=== PATIENT | female | born 1940 | race Caucasian/White ===

== ENCOUNTER 2016-09-11 07:40 | Outpatient (CLI) | payer MEDICARE, OTHER ==
[2016-06-26 13:01] VITALS: BP 131/65
[2016-09-11 18:01] LABS: URINE CREAT MG/DAY 624 mg/day (740-1570)
== END 2016-09-11 07:42 ==
LOC: LAB 07:40
PROVIDERS: ATTEND Family Medicine
DX: N18.3 Chronic kidney disease, stage 3 (moderate) (principal)
CPT/HCPCS: 82340; 82570; 84156

== ENCOUNTER 2016-09-26 08:46 | Outpatient (CLI) | payer MEDICARE, OTHER ==
[2016-06-26 13:01] VITALS: BP 131/65
[2016-09-26 09:36] LABS: eGFR (African) > 60; eGFR (Non-African) > 60
== END 2016-09-26 08:50 ==
LOC: LAB 08:46
PROVIDERS: ATTEND Family Medicine
DX: I10 Essential (primary) hypertension (principal)
CPT/HCPCS: 36415; 80053

== ENCOUNTER 2016-10-30 15:26 | Outpatient (CLI) | payer MEDICARE, OTHER ==
[2016-06-26 13:01] VITALS: BP 131/65
[2016-10-30 15:54] LABS: BASOPHILS % 0.4 (0.0-1.5); EOSINOPHILS % 1.7 % (0.0-6.8); MEAN CORPUSCULAR HEMOGLOBIN 30.3 pg (28.0-34.0); MEAN CORPUSCULAR VOLUME 90.5 fl (80.0-100.0); NEUTROPHILS # 4.1 # k/uL (1.4-7.7)
[2016-10-30 16:27] LABS: eGFR (African) > 60; eGFR (Non-African) > 60
[2016-10-30 23:20] LABS: VITAMIN D, 25-HYDROXY 55 ng/mL (30-100)
== END 2016-10-30 15:27 ==
LOC: LAB 15:26
PROVIDERS: ATTEND Psychiatry & Neurology Neurology
DX: G40.109 Localization-related (focal) (partial) symptomatic epilepsy and epileptic syndromes with simple partial seizures, not intractable, without status epilepticus (principal)
CPT/HCPCS: 36415; 80053; 80177; 82306; 82607; 83921; 85025

== ENCOUNTER 2016-11-28 08:01 | Outpatient (CLI) | payer MEDICARE, OTHER ==
[2016-06-26 13:01] VITALS: BP 131/65
[2016-11-28 08:31] LABS: BASOPHILS % 0.6 (0.0-1.5); EOSINOPHILS % 2.6 % (0.0-6.8); MEAN CORPUSCULAR HEMOGLOBIN 29.7 pg (28.0-34.0); MEAN CORPUSCULAR VOLUME 90.5 fl (80.0-100.0); MONOCYTES % 2.6 % (0.0-11.0)
[2016-11-28 08:58] LABS: eGFR (African) > 60; eGFR (Non-African) > 60
== END 2016-11-28 08:02 ==
LOC: LAB 08:01
PROVIDERS: ATTEND Psychiatry & Neurology Neurology
DX: Z51.81 Encounter for therapeutic drug level monitoring (principal); Z79.899 Other long term (current) drug therapy; G40.009 Localization-related (focal) (partial) idiopathic epilepsy and epileptic syndromes with seizures of localized onset, not intractable, without status epilepticus
CPT/HCPCS: 36415; 80053; 80177; 85025

== ENCOUNTER 2017-01-26 09:34 | Emergency (ER) | payer MEDICARE, OTHER ==
[2017-01-26] MEDS ORDERED: KETOROLAC TROMETHAMINE 60 MG/2 ML VIAL ONE (10:18)
[2017-01-26] MEDS ORDERED: KETOROLAC TROMETHAMINE 60 MG/2 ML VIAL IM ONE (10:18)
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
[2017-01-26 10:43] VITALS: BP 198/82
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
== END 2017-01-26 10:42 | disposition home or self-care (01) ==
LOC: ED 09:34
DX: S40.011A Contusion of right shoulder, initial encounter (principal); V49.9XXA Car occupant (driver) (passenger) injured in unspecified traffic accident, initial encounter; Y93.9 Activity, unspecified; Y99.9 Unspecified external cause status; I10 Essential (primary) hypertension
CPT/HCPCS: 73030; J1885; 96372; 99283

== ENCOUNTER 2017-05-28 09:41 | Outpatient (CLI) | payer MEDICARE, OTHER ==
[2017-05-28 10:30] LABS: eGFR (African) > 60; eGFR (Non-African) > 60
== END 2017-05-28 09:42 ==
LOC: LAB 09:41
PROVIDERS: ATTEND Family Medicine
DX: E78.2 Mixed hyperlipidemia (principal)
CPT/HCPCS: 36415; 80053; 80061

== ENCOUNTER 2017-11-20 07:49 | Outpatient (CLI) | payer MEDICARE, OTHER ==
[2017-11-20 08:26] LABS: BASOPHILS % 0.5 (0.0-1.5); EOSINOPHILS % 2.9 % (0.0-6.8); MEAN CORPUSCULAR HEMOGLOBIN 31.2 pg (28.0-34.0); MEAN CORPUSCULAR VOLUME 92.6 fl (80.0-100.0); MONOCYTES % 3.9 % (0.0-11.0); NEUTROPHILS # 4.4 # k/uL (1.4-7.7)
[2017-11-20 09:01] LABS: eGFR (African) > 60; eGFR (Non-African) > 60
== END 2017-11-20 07:50 ==
LOC: LAB 07:49
PROVIDERS: ATTEND Nurse Practitioner
DX: G40.009 Localization-related (focal) (partial) idiopathic epilepsy and epileptic syndromes with seizures of localized onset, not intractable, without status epilepticus (principal); Z79.899 Other long term (current) drug therapy
CPT/HCPCS: 36415; 80053; 80177; 85025

== ENCOUNTER 2018-01-14 11:10 | Outpatient (CLI) | payer MEDICARE, OTHER ==
[2018-01-14 11:40] LABS: BASOPHILS % 0.4 (0.0-1.5); MEAN CORPUSCULAR VOLUME 89.8 fl (80.0-100.0); MONOCYTES % 3.9 % (0.0-11.0); NEUTROPHILS # 4.8 # k/uL (1.4-7.7)
[2018-01-14 12:09] LABS: eGFR (African) > 60; eGFR (Non-African) > 60
== END 2018-01-14 11:12 ==
LOC: LAB 11:10
PROVIDERS: ATTEND Nurse Practitioner
DX: Z79.899 Other long term (current) drug therapy (principal); R47.89 Other speech disturbances; G40.109 Localization-related (focal) (partial) symptomatic epilepsy and epileptic syndromes with simple partial seizures, not intractable, without status epilepticus; E55.9 Vitamin D deficiency, unspecified; E53.9 Vitamin B deficiency, unspecified
CPT/HCPCS: 36415; 80053; 80177; 82306; 82607; 83921; 84439; 84443; 85025

== ENCOUNTER 2018-12-09 07:46 | Outpatient (CLI) | payer MEDICARE, OTHER ==
[2018-12-09 08:29] LABS: BASOPHILS % 0.5 % (0.0-1.5); EOSINOPHILS % 2.8 % (0.0-6.8); MEAN CORPUSCULAR HEMOGLOBIN 30.7 pg (28.0-34.0); NEUTROPHILS # 4.7 # k/uL (1.4-7.7)
[2018-12-09 08:55] LABS: eGFR (Non-African) 42
== END 2018-12-09 07:48 ==
LOC: LAB 07:46
PROVIDERS: ATTEND Nurse Practitioner
DX: G40.109 Localization-related (focal) (partial) symptomatic epilepsy and epileptic syndromes with simple partial seizures, not intractable, without status epilepticus (principal); Z79.899 Other long term (current) drug therapy
CPT/HCPCS: 36415; 80053; 80177; 85025

== ENCOUNTER 2019-06-17 07:57 | Outpatient (CLI) | payer MEDICARE, OTHER ==
[2019-06-17 08:27] LABS: BASOPHILS % 0.3 % (0.0-1.5); NEUTROPHILS # 5.3 # k/uL (1.4-7.7)
[2019-06-17 09:11] LABS: eGFR (Non-African) 36
[2019-06-17 09:12] LABS: HDL 46 mg/dL (>40)
== END 2019-06-17 08:02 ==
LOC: LAB 07:57
PROVIDERS: ATTEND Family Medicine
DX: E53.9 Vitamin B deficiency, unspecified (principal); E55.9 Vitamin D deficiency, unspecified; E78.2 Mixed hyperlipidemia; Z79.899 Other long term (current) drug therapy
CPT/HCPCS: 36415; 80053; 80061; 80177; 82306; 82607; 83921; 85025

== ENCOUNTER 2019-07-09 09:45 | Outpatient (CLI) | payer MEDICARE, OTHER ==
[2019-07-09 10:26] LABS: eGFR (Non-African) > 60
== END 2019-07-09 09:50 ==
LOC: LAB 09:45
PROVIDERS: ATTEND Family Medicine
DX: N28.9 Disorder of kidney and ureter, unspecified (principal)
CPT/HCPCS: 36415; 80048